=== PATIENT | female | born 1970 | race Caucasian/White ===

== ENCOUNTER 2024-11-25 18:19 | Emergency (ER) | payer OTHER, SELFPAY ==
[2024-11-25 18:23] VITALS: BP 173/107
[2024-11-25 18:51] LABS: Hematocrit 41.8 % (37.0-47.0); Hemoglobin 14.5 g/dL (12.0-16.0); Mean Corp Hgb Conc. 34.7 g/dL (33.0-37.0); Mean Corpuscular Volume 90.3 fL (81.0-99.0); Nucleated Red Blood Cells % 0 %; Platelet Count 261 10^3/uL (130-400); Red Cell Dist. Width 13.1 % (11.5-14.5)
[2024-11-25 18:59] LABS: APTT 26.9 Sec (23.4-35.0)
[2024-11-25 19:11] LABS: ALT (SGPT) 20 U/L (0-35); AST (SGOT) 24 U/L (14-36); Albumin 5.2 g/dl (3.5-5.0); Alkaline Phosphatase 80 U/L (38-126); Blood Urea Nitrogen 17 mg/dl (7-17); Calcium 9.9 mg/dl (8.4-10.2); Carbon Dioxide 25 mmol/L (22-30); Chloride 107 mmol/L (98-107); Glucose 107 mg/dl (70-99); Potassium 3.9 mmol/L (3.5-5.1); Sodium 138 mmol/L (135-145); Total Protein 8.2 g/dl (6.3-8.2); eGFR > 60.00
[2024-11-25 19:24] LABS: Troponin I < 0.012 ng/ml
[2024-11-25 21:05] VITALS: BP 137/74
--- NOTE | 2024-11-25 21:50 | ED.GENMED ---
History of Present Illness
General
Chief Complaint: Blood Pressure Problem
Source: patient
Exam Limitations: none
Time Seen by Provider: 11/25/24 20:53
Nursing documentation reviewed up to this point in time: agreed with
History of Present Illness
History of Present Illness:
54-year-old female limited past medical history, smoker drinker family history of CAD in her mother in her 40s, she has had some mild lightheadedness, mild fatigue, no chest pain floaters in her eye for some time friend took her blood pressure was
elevated, friend was a nurse suggested come to the ER to be evaluated here her blood pressure was elevated but normalized without intervention, no abdominal pain
Past History
Past History
ED Past Medical History: None
ED Past Surgical History: Gynecological (LEEP, D&C), Orthopedic (Jaw repair) and Other
Social History
Tobacco: Former smoker
Alcohol: Occasional
Drug: None
Family History
Family History: Other (Noncontributary)
Review of Systems
Review of Systems
All Other Systems: Not applicable
Constitutional: Denies fever or fatigue
EENT: Reports other (Congestion, eye floater)
Respiratory: Denies cough or trouble breathing
Cardiac: Reports chest pain
ABD/GI: Reports no symptoms
: Reports no symptoms
Musculoskeletal: Reports edema
Skin: Reports no symptoms
Hematologic/Lymphatic: Reports no symptoms
Psychiatric: Reports no symptoms
Phy Exam
Physical Exam
Physical Exam:
Physical Exam
General: no apparent distress, not acutely ill
Neck: No JVD, no jaundice
Heart: s1/s2 regular rate and rhythm, no murmur. equal radial pulses.
Lungs: no acute respiratory distress. clear bilaterally
Abdomen: Nontender
Neuro: alert and oriented. no focal neurological deficits
Skin: no rash
Psychiatric: well kept. interactive and cooperative
Extremities: Trace edema no calf pain no cords
Scores
Heart Score for Chest Pain Patients
STEMI patient?: No
History: Slightly or Non-Suspicious
ECG: Normal
Age: >45 - <65 years
Risk Factors: 1 or 2 Risk Factors
Troponin: </= Normal Limit
Heart Score for Chest Pain Patients: 2
Heart Score Risk: 2.5% MACE over next 6 weeks
Course
Orders/Labs/Results
Orders:
Orders
11/25/24 18:25
Electrocardiogram (*1) Urgent
Reason for Study: Hypertension, Benign
CT Head W/o Iv Contrast Urgent
Comment:
Reason For Exam: vision change
EKG- Treatment ONCE
11/25/24 18:32
Complete Blood Count/With Diff Urgent
Comprehensive Metabolic Panel Urgent
PTT Urgent
Troponin I Urgent
11/25/24 21:48
Aspirin 325 mg PO NOW STA
Abnormal Lab Results
11/25/24
18:32
WBC 12.0 H 10^3/uL
(4.8-10.8)
MCH 31.3 H pg
(27.0-31.0)
Abs Immat Gran (auto) 0.1 H 10^3/uL
(0-0.05)
Absolute Lymphs (auto) 4.1 H 10^3/uL
(1.2-3.4)
Absolute Monos (auto) 1.1 H 10^3/uL
(0.1-0.6)
Glucose 107 H mg/dl
(70-99)
Albumin 5.2 H g/dl
(3.5-5.0)
11/25/24 18:32
11/25/24 18:32
Vital Signs
Initial and Last Documented VS:
Initial Vital Signs
Temp Pulse Resp BP Pulse Ox
98 F 114 20 173/107 98
11/25/24 18:23 11/25/24 18:23 11/25/24 18:23 11/25/24 18:23 11/25/24 18:23
Last Documented Vital Signs
Temp Pulse Resp BP Pulse Ox
98 F 94 16 137/74 99
11/25/24 18:23 11/25/24 21:05 11/25/24 21:05 11/25/24 21:05 11/25/24 21:51
MDM/Problems Addressed
Differential Diagnosis Includes:
Hypertension, essential hypertensive hypertensive urgency accelerated hypertension ACS angina noncardiac pain
MDM/Problems Addressed:
High blood pressure
*Radiology
Radiology exam reviewed: radiology read reviewed
*Pulse Oximetry
SaO2: 99
Oxygen Mode of Delivery: Room air
Patient hypoxic: no
*EKG
Interpreted by ED Provider?: Yes
Interpretation: normal
Comparison EKG: no comparison EKG present
Heart Rate: 78
Rate: normal
Ischemia: no ischemia
*W[employer]er Interpretation
Rate: normal
Interpretation: normal
Heart Rate: 78
Rhythm: sinus
*Critical Care Note
Total Time (30-74mins, 75-104mins- exclusive of procedures): Not Applicable
Update Note
Update Note:
Update
Labs noted CT noted vital signs of normalized, does have a history of premature CAD in her mother, counseled the patient to stop smoking first and foremost, we will start her on a baby aspirin discharged her to follow-up with her PCP in the chest
pain hotline ER if worsening symptoms
ED Attending Note
-
Portions of this chart may have been created with voice recognition software.� Occasional wrong word or��sound alike� substitutions may have occurred due to the inherent limitations of voice recognition software.
Discharge Plan
Departure
Patient with high blood pressure during this ER visit?: Yes
Condition: Good
Discharge Problem:
Hypertension
Instructions: High Blood Pressure (DC), Chest Pain DCA Follow Up
Prescriptions:
No Action
ascorbic acid (vitamin C) [Vitamin C] 1,000 MG tablet
1,000 mg PO DAILY
cholecalciferol (vitamin D3) [Vitamin D3] 1,000 UNIT capsule
2,000 unit PO DAILY
omega [id number] oil 1 EACH capsule
1,000 mg PO DAILY
oxycodone-acetaminophen 5 MG/325 MG tablet
1 tab PO Q4HPRN PRN (Reason: mild pain) Qty: 25 0RF
oxycodone-acetaminophen 5 MG/325 MG tablet
2 tab PO Q6HPRN PRN (Reason: moderate pain) Qty: 0 0RF
docusate sodium 100 MG capsule
100 mg PO BIDPRN PRN (Reason: constipation) Qty: 30 0RF
ibuprofen 600 MG tablet
600 mg PO Q6HPRN PRN (Reason: pain) Qty: 30 0RF
cephalexin 500 MG capsule
500 mg PO TID Qty: 15 0RF
Referrals:
Brown Lawson MD [Active, Cardiology] - Next open appointment
Alexx Wynn DO [Family Provider, Family Practice] - Next open appointment
Activity Restrictions/Additional Instructions:
Start aspirin 81 mg a day
Chart your blood pressure in the morning and nighttime to follow the trends
Follow-up with your primary care doctor and Dr. Calderón or his associates from cardiology
Interventions
Interventions:
*Risk Screen - Suicide Last Done: 11/25/24 21:06
*General Assessment Last Done: 11/25/24 18:23
*Neglect/Abuse Screening Last Done: 11/25/24 21:06
*ED- Fall Risk Assessment Last Done: 11/25/24 21:06
ED- Cardiac Assessment Last Done: 11/25/24 21:06
ED- Neurological Assessment Last Done: 11/25/24 21:06
ED- Pulmonary Assessment Last Done: 11/25/24 21:06
Discharge Date and Time
Print Language: SAMOAN
[2024-11-25 22:00] VITALS: BP 130/75
[2024-11-25] MEDS: ASPIRIN 325 MG PO (22:34)
== END 2024-11-25 22:35 | disposition home or self-care (01) ==
LOC: EMR 18:19
PROVIDERS: Emergency Medicine; EMERGENCY PHYSICIAN Emergency Medicine; FAMILY PHYSICIAN Family Medicine
DX: R42 Dizziness and giddiness (principal); R53.83 Other fatigue; H43.399 Other vitreous opacities, unspecified eye; I10 Essential (primary) hypertension; R60.0 Localized edema; F32.A Depression, unspecified; Z87.891 Personal history of nicotine dependence; Z82.49 Family history of ischemic heart disease and other diseases of the circulatory system
CPT/HCPCS: 99284; 70450; 80053; 84484; 85025; 85730; 93005

== ENCOUNTER → 2025-03-04 10:01 | Outpatient (REF) | payer OTHER, SELFPAY | LOC: WDC 10:01 | PROVIDERS: ATTENDING PHYSICIAN Obstetrics & Gynecology | DX: R92.8 Other abnormal and inconclusive findings on diagnostic imaging of breast (principal) | CPT/HCPCS: 76642; 77062; 77066 ==